=== PATIENT | male | born 1950 | race Caucasian/White ===

== ENCOUNTER 2017-06-18 14:29 | Inpatient (IN) | payer OTHER ==
--- NOTE | 2017-06-18 15:31 | RAD REPORT ---
EXAM DESCRIPTION: CT - Stone Protocol - 06/18/2017 3:18 pm CLINICAL HISTORY: Flank pain. COMPARISON: 11/07/2016 TECHNIQUE: Axial images were obtained without oral or IV contrast. Lack of contrast limits solid org an and vascular assessment. The [id number] spans the entirety of the system partially obscuring uppermost abdomen and lung bases. Coronal reformatted images were obtained and reviewed. All CT scans are performed using dose optimization technique as appropriate and may include automated exposure control or mA/KV adjustment according to patient size. FINDINGS: The lower lung camacho are clear. Imaged portions of the liver and spleen show no suspicious findings on non-contrast imaging. The panc reas and adrenal glands are normal. No pathologic lymphadenopathy in the abdomen or pelvis. 5 mm stone is present in the inferior calyx left kidney. Punctate stone is present mid-pole left kidn ey. No right-sided calculus is seen. No bowel obstruction, free air, free fluid or abscess. Normal appendix noted.Sigmoid diverticulosis c bairon is present without diverticulitis. No significant bony abnormality. Moderate aortic atherosclerosis. IMPRESSION: Left renal stones are present without hydronephrosis. Moderate aortic atherosclerosis. Sigmoid diverticulosis.
[2017-06-18 15:40] LABS: Absolute Lymphocytes (CBC) 1.4 K/uL (0.7-4.9); Absolute Monocytes 0.7 K/uL (0.1-1.3); Absolute Neutrophil 3.7 K/uL (1.8-8.0); Basophils % 0.4 % (0-1.3); Eosinophils % 2.2 % (0-4.4); Lymphocytes % 23.5 % (15.3-44.8); MCH 29.7 pg (27.0-35.0); MCV 88.6 fL (80-100); MPV 7.9 fL (7.6-11.3); Monocytes % 11.1 % (3.3-12.3)
[2017-06-18 15:51] LABS: Potassium 3.8 mEq/L (3.6-5.0)
[2017-06-18 15:57] LABS: Albumin 3.6 g/dL (3.2-5.5); Bilirubin Direct 0.1 mg/dL (0-0.2); Bilirubin Total 0.7 mg/dL (0.3-1.2); Protein, Total 7.6 g/dL (6.0-8.3)
--- NOTE | 2017-06-18 16:30 | ER ---
Nurse's Notes [facility] Name: Tyler Thornton Age: 66 yrs Sex: Male : 1950 Arrival Date: 06/18/2017 Time: 14:34 Bed 30 Private MD: Breezy Prieto Diagnosis: Acute kidney failure Presentation: 06/18 14:40 Presenting complaint: Patient states: went to my PCP last Friday, had some blood test hj and had another round of blood test today, received a call an hour ago from my PCP, telling me that my kidney is not functioning well; i am extremely week and i have diarrhea today; reports nausea; denies fever and chills;. Transition of care: patient was not received from another setting of care. Onset of symptoms was June 18, 2017. Care prior to arrival: None. 14:40 Method Of Arrival: Ambulatory hj 14:40 Acuity: REMINGTON 3 hj Triage Assessment: 14:45 General: Appears in no apparent distress. uncomfortable, Behavior is calm, cooperative, hj appropriate for age. Pain: Denies pain. GI: Reports diarrhea, nausea. Historical: - Allergies: 14:45 No Known Allergies; hj - Home Meds: 14:45 amlodipine 10 mg tab 1 tab once daily [Active]; metformin 500 mg Oral tab 1 tab 2 times hj per day [Active]; atorvastatin 10 mg oral tab 1 tab once daily [Active]; methocarbamol 750 mg Oral tab 1 tab twice a day [Active]; testosterone buccal buccal every 4 weeks [Active]; Levitra 20 mg oral tab 1 tab once daily [Active]; valacyclovir 500 mg Oral tab 1 tab once daily [Active]; lorazepam 1 mg Oral tab 1 tab 2 times per day [Active]; nefazodone 200 mg oral tab 1 tab 2 times per day [Active]; - PMHx: 14:45 Diabetes - NIDDM; Hypertension; Kidney stones; hj - PSHx: 14:45 Lithotripsy; hj - Immunization history:: Pneumococcal vaccine is up to date, Flu vaccine is up to date. - Social history:: Smoking status: Patient uses tobacco products, States is currently trying to quit, has not smoked in 10 days. Screenin:15 Abuse screen: Denies threats or abuse. Nutritional screening: No deficits noted. kb1 Tuberculosis screening: No symptoms or risk factors identified. Fall Risk None identified. Assessment: 14:45 GI: Bowel sounds present X 4 quads. hj 15:15 General: Appears in no apparent distress. Behavior is calm, cooperative. Pain: Denies kb1 pain. Neuro: Level of Consciousness is awake, alert, obeys commands, Oriented to person, place, time, situation. Cardiovascular: Patient's skin is warm and dry. Respiratory: Airway is patent. GI: Bowel sounds present X 4 quads. Abd is soft and non tender. : No signs and/or symptoms were reported regarding the genitourinary system. 15:29 Reassessment: Attempted to give urine sample, unable at this time. kb1 17:22 Reassessment: Patient appears in no apparent distress at this time. Patient and/or kb1 family updated on plan of care and expected duration. Pain level reassessed. Patient is alert, oriented x 3, equal unlabored respirations, skin warm/dry/pink. 18:26 Reassessment: Patient appears in no apparent distress at this time. Patient and/or kb1 family updated on plan of care and expected duration. Pain level reassessed. Patient is alert, oriented x 3, equal unlabored respirations, skin warm/dry/pink. 19:03 Reassessment: provided crackers, peanut butter, and water. kb1 20:28 Reassessment: Patient appears in no apparent distress at this time. Patient and/or kb1 family updated on plan of care and expected duration. Pain level reassessed. Patient is alert, oriented x 3, equal unlabored respirations, skin warm/dry/pink. notified will be going to the unit to room 206. Vital Signs: 14:45 BP 103 / 50; Pulse 70; Resp 18; Temp 98.2(O); Pulse Ox 96% on R/A; Weight 90.72 kg; hj Height 5 ft. 9 in. (175.26 cm); Pain 0/10; 15:29 BP 111 / 57; Pulse 58; Resp 18; Pulse Ox 98% ; kb1 17:23 BP 107 / 62; Pulse 55; Resp 18; Pulse Ox 100% ; kb1 18:26 BP 140 / 50; Pulse 75; Resp 20; Pulse Ox 100% ; kb1 20:29 BP 139 / 50; Pulse 69; Resp 20; Pulse Ox 98% ; kb1 14:45 Body Mass Index 29.54 (90.72 kg, 175.26 cm) ED Course: 14:34 Patient arrived in ED. mr 14:34 Breezy Prieto MD is Private Physician. mr 14:42 Triage completed. hj 14:45 Arm band placed on left wrist. hj 14:47 Alejandrina Spencer FNP-C is PHCP. kb 14:47 Sebas Valdes MD is Attending Physician. kb 14:52 Vandana Gottlieb, RN is Primary Nurse. tl3 15:15 Patient has correct armband on for positive identification. Bed in low position. Call kb1 light in reach. Side rails up X 1. Pulse ox on. NIBP on. 15:15 No provider procedures requiring assistance completed. kb1 15:16 Primary Nurse role handed off by Vandana Gottlieb, RN kb1 15:16 Chaparrita Reilly, RN is Primary Nurse. kb1 15:49 Inserted saline lock: 20 gauge in right antecubital area, using aseptic technique. kb1 Blood collected. 16:12 Ultrasound completed. Patient tolerated well. Patient moved back from ultrasound. cy 16:29 Russell Graham DO is Hospitalizing Provider. kb 16:52 X-ray completed. Patient tolerated procedure well. Patient moved back from radiology. la2 20:30 Patient admitted, IV remains in place. kb1 06/19 01:14 Urine Dipstick--Ancillary (enter results) Sent. tl3 01:15 US Rp Exam Complete Sent. tl3 01:15 CT Stone Protocol Sent. tl3 01:15 Amylase, Serum Sent. tl3 01:15 Basic Metabolic Panel Sent. tl3 01:15 CBC with Diff Sent. tl3 01:15 Hepatic Function Sent. tl3 01:15 Lipase Sent. tl3 01:15 Urine Microscopic Only Sent. tl3 Administered Medications: 06/18 17:23 Drug: NS 0.9% 1000 ml Route: IV; Rate: 1000 ml; Site: right antecubital; kb1 18:27 Follow up: IV Status: Completed infusion; IV Intake: 1000ml kb1 17:24 Drug: DuoNeb (3:1) (2.5 mg - 0.5 mg) 3 ml Route: Nebulizer; kb1 18:27 Follow up: Response: No adverse reaction kb1 Intake: 18:27 IV: 1000ml; Total: 1000ml. kb1 Outcome: 16:29 Decision to Hospitalize by Provider. kb 20:30 Admitted to Tele accompanied by tech, family with patient, via wheelchair, room 206, kb1 Report called to Kristin FAIR 20:30 Condition: stable 20:30 Instructed on the need for admit. 20:49 Patient left the ED. kb1 Signatures: Alejandrina Spencer, [employer]-Germania Wells mr Jorje Simmons, RN RN Harper Sampson Chheannith cy Brown, Kristina RN RN kb1 Vandana Gottlieb RN RN tl3 Corrections: (The following items were deleted from the chart) 14:48 14:45 Pulse 70bpm; Resp 18bpm; Pulse Ox 96% RA; Temp 98.2F Oral; 90.72 kg; Height 5 ft. hj 9 in.; BMI: 29.5; Pain 0/10; hj
--- NOTE | 2017-06-18 16:30 | EDPHYS ---
Physician Documentation [facility] Name: Tyler Thornton Age: 66 yrs Sex: Male : 1950 Arrival Date: 06/18/2017 Time: 14:34 Bed 30 Private MD: Breezy Prieto ED Physician Sebas Valdes HPI: 06/18 14:58 This 66 yrs old Male presents to ER via Ambulatory with complaints of kb Abdominal Pain. 14:58 The patient presents with abdominal pain in the upper abdomen. Onset: The kb symptoms/episode began/occurred 3 day(s) ago. The symptoms do not radiate. Associated signs and symptoms: Pertinent positives: diarrhea. The symptoms are described as achy, intermittent. Modifying factors: The symptoms are alleviated by nothing, the symptoms are aggravated by nothing. Severity of pain: At its worst the pain was moderate in the emergency department the pain is unchanged. The patient has not experienced similar symptoms in the past. The patient has been recently seen by a physician:. Was seen last week by Dr Prieto for sinus infection/cough. Given antibiotics for that. Had some labs done this week by Ida and got a call today to come to ER for evaluation because his kidneys weren't functioning well. Pt reports he is urinating fine at home. Reports upper abd pain that is relieved with aleve and rest. . Historical: - Allergies: 14:45 No Known Allergies; hj - Home Meds: 14:45 amlodipine 10 mg tab 1 tab once daily [Active]; metformin 500 mg Oral tab 1 tab 2 times hj per day [Active]; atorvastatin 10 mg oral tab 1 tab once daily [Active]; methocarbamol 750 mg Oral tab 1 tab twice a day [Active]; testosterone buccal buccal every 4 weeks [Active]; Levitra 20 mg oral tab 1 tab once daily [Active]; valacyclovir 500 mg Oral tab 1 tab once daily [Active]; lorazepam 1 mg Oral tab 1 tab 2 times per day [Active]; nefazodone 200 mg oral tab 1 tab 2 times per day [Active]; - PMHx: 14:45 Diabetes - NIDDM; Hypertension; Kidney stones; hj - PSHx: 14:45 Lithotripsy; hj - Immunization history:: Pneumococcal vaccine is up to date, Flu vaccine is up to date. - Social history:: Smoking status: Patient uses tobacco products, States is currently trying to quit, has not smoked in 10 days. ROS: 14:57 Constitutional: Negative for fever, chills, and weight loss, Cardiovascular: Negative kb for chest pain, palpitations, and edema, Back: Negative for injury and pain, : Negative for injury, bleeding, discharge, and swelling, MS/Extremity: Negative for injury and deformity, Skin: Negative for injury, rash, and discoloration, Neuro: Negative for headache, weakness, numbness, tingling, and seizure. 14:57 Respiratory: Positive for cough, Negative for dyspnea on exertion, hemoptysis, orthopnea, pleurisy, shortness of breath, sputum production, wheezing. 14:57 Abdomen/GI: Positive for abdominal pain, diarrhea, Negative for nausea and vomiting, constipation, abdominal cramps, abdominal distension, anorexia. Exam: 14:58 Constitutional: This is a well developed, well nourished patient who is awake, alert, kb and in no acute distress. Head/Face: Normocephalic, atraumatic. Chest/axilla: Normal chest wall appearance and motion. Nontender with no deformity. No lesions are appreciated. Cardiovascular: Regular rate and rhythm with a normal S1 and S2. No gallops, murmurs, or rubs. Normal PMI, no JVD. No pulse deficits. Respiratory: Lungs have equal breath sounds bilaterally, clear to auscultation and percussion. No rales, rhonchi or wheezes noted. No increased work of breathing, no retractions or nasal flaring. Back: No spinal tenderness. No costovertebral tenderness. Full range of motion. Skin: Warm, dry with normal turgor. Normal color with no rashes, no lesions, and no evidence of cellulitis. MS/ Extremity: Pulses equal, no cyanosis. Neurovascular intact. Full, normal range of motion. Neuro: Awake and alert, GCS 15, oriented to person, place, time, and situation. Cranial nerves II-XII grossly intact. Motor strength 5/5 in all extremities. Sensory grossly intact. Cerebellar exam normal. Normal gait. 14:58 Abdomen/GI: Inspection: abdomen appears normal, Bowel sounds: normal, in all quadrants, Palpation: soft, in all quadrants, nontender, in the right upper quadrant and left upper quadrant, mild abdominal tenderness, in the right lower quadrant and left lower quadrant. Vital Signs: 14:45 BP 103 / 50; Pulse 70; Resp 18; Temp 98.2(O); Pulse Ox 96% on R/A; Weight 90.72 kg; hj Height 5 ft. 9 in. (175.26 cm); Pain 0/10; 15:29 BP 111 / 57; Pulse 58; Resp 18; Pulse Ox 98% ; kb1 17:23 BP 107 / 62; Pulse 55; Resp 18; Pulse Ox 100% ; kb1 18:26 BP 140 / 50; Pulse 75; Resp 20; Pulse Ox 100% ; kb1 20:29 BP 139 / 50; Pulse 69; Resp 20; Pulse Ox 98% ; kb1 14:45 Body Mass Index 29.54 (90.72 kg, 175.26 cm) hj MDM: 14:48 Patient medically screened. kb 14:58 Data reviewed: vital signs, nurses notes. Data interpreted: Pulse oximetry: on room air kb is 96 %. Interpretation: normal. 16:28 Counseling: I had a detailed discussion with the patient and/or guardian regarding: the kb historical points, exam findings, and any diagnostic results supporting the discharge/admit diagnosis, lab results, radiology results, the need for further work-up and treatment in the hospital. Physician consultation: Russell Graham DO was contacted at 16:28, regarding admission, to the medical/surgical unit. patient's condition, in the emergency department to see patient at 16:28. 06/18 14:57 Order name: Amylase, Serum kb 06/18 14:57 Order name: Basic Metabolic Panel kb 06/18 14:57 Order name: CBC with Diff kb 06/18 14:57 Order name: Hepatic Function kb 06/18 14:57 Order name: Lipase kb 06/18 14:57 Order name: Urine Microscopic Only kb 06/18 15:42 Order name: CBC with Automated Diff; Complete Time: 15:45 EDMS 06/18 15:51 Order name: Basic Metabolic Panel; Complete Time: 16:06 EDMS 06/18 15:51 Order name: Lipase; Complete Time: 16:06 EDMS 06/18 16:01 Order name: Liver (Hepatic) Function; Complete Time: 16:06 EDMS 06/18 16:01 Order name: Amylase Level; Complete Time: 16:06 EDMS 06/18 16:52 Order name: Urine Dipstick--Ancillary (enter results) ms 06/18 16:55 Order name: Urine Microscopic Only; Complete Time: 16:59 EDMS 06/18 16:57 Order name: Urine Dipstick-Ancillary; Complete Time: 16:59 EDMS 06/18 14:57 Order name: IV Saline Lock; Complete Time: 15:49 kb 06/18 14:57 Order name: Labs collected and sent; Complete Time: 15:49 kb 06/18 14:57 Order name: Urine Dipstick-Ancillary (obtain specimen); Complete Time: 16:23 kb 06/18 15:05 Order name: CT Stone Protocol kb 06/18 15:32 Order name: CT; Complete Time: 15:33 EDMS 06/18 15:46 Order name: US Rp Exam Complete kb 06/18 16:39 Order name: Chest Pa And Lat (2 Views) XRAY kb 06/18 16:57 Order name: US; Complete Time: 16:59 EDMS 06/18 17:12 Order name: RAD; Complete Time: 17:13 EDMS Administered Medications: 17:23 Drug: NS 0.9% 1000 ml Route: IV; Rate: 1000 ml; Site: right antecubital; kb1 18:27 Follow up: IV Status: Completed infusion; IV Intake: 1000ml kb1 17:24 Drug: DuoNeb (3:1) (2.5 mg - 0.5 mg) 3 ml Route: Nebulizer; kb1 18:27 Follow up: Response: No adverse reaction kb1 Disposition: 06/19 07:16 Co-signature as Attending Physician, Sebas Valdes MD I agree with the assessment and kdr plan of care. Disposition: 06/18/17 16:29 Hospitalization ordered by Russell Graham for Inpatient Admission. Preliminary diagnosis is Acute kidney failure. - Bed requested for Telemetry/MedSurg (Inpatient). - Status is Inpatient Admission. kb1 - Condition is Stable. - Problem is new. - Symptoms are unchanged. UTI on Admission? No Signatures: Dispatcher [employer] [facility] Alejandrina Spencer FNP-C FNP-Ckb Rittger, Kevin, MD MD kdr Joaquin, Henry, RN RN Paulson, Brenna, RN RN df Brown, Chaparrita, RN RN kb1
[2017-06-18] MEDS ORDERED: NA CHLORIDE 0.9% 1,000 ML ONE (16:44)
[2017-06-18 16:55] LABS: Urine Amorphous Sediment 1+ /HPF (NONE SEEN); Urine Bacteria <20 /HPF (NONE SEEN); Urine Culture Reflex Order NOT NEEDED; Urine RBC <5 /HPF (NONE SEEN)
--- NOTE | 2017-06-18 16:56 | RAD REPORT ---
EXAM DESCRIPTION: US - Renal Ultrasound-Complete - 06/18/2017 4:14 pm CLINICAL HISTORY: Acute renal failure, evaluate for obstruction Preliminary findings provided at the time of the study. COMPARISON: CT study June 18 FINDINGS: The right kidney measures 12.6 x 7.2 x 5.9 cm. The left kidney measures 12.7 x 6.1 x 4.8 cm. Renal cortical thickness and echogenicity are normal. No hydronephrosis or suspicious renal mass. Punctate 7 mm echogenic focus lower pole left kidney matches the stone seen on the CT study. IMPRESSION: No hydronephrosis or suspicious renal mass. Small nonobstructing stone lower pole left kidney.
[2017-06-18 16:57] LABS: Urine Blood 2+ (NEG); Urine Glucose NEGATIVE (NEG); Urine Protein 1+ (NEG); Urine Specific Gravity 1.015 (1.005-1.030)
--- NOTE | 2017-06-18 17:03 | P.HP ---
Certification for Inpatient Patient admitted to: Inpatient With expected LOS: >2 Midnights Patient will require the following post-hospital care: None Practitioner: I am a practitioner with admitting privileges, knowledge of patient current condition, hospital course, and medical plan of care. Services: Services provided to patient in accordance with Admission requirements found in Title 42 Section 412.3 of the Code of Federal Regulations Patient History Date of Service: 06/18/17 Primary Care Provider: Dr. Prieto Reason for admission: Abnormal lab, fatigue History of Present Illness: 66-year-old male presented emergency room with fatigue and abnormal lab. The patient reports that he has been having some sinus problems since last week. He went to see his PCP on Friday. He is found to have acute sinusitis. The patient was started on Cipro 500 mg twice daily. He had been taking over the counter cough and cold medication along with believed for pain. The patient has significant past medical history of diabetes, hypertension, hyperlipidemia, chronic pain, depression, low testosterone and history of kidney stones. The patient is taking metformin and losartan/ hydrochlorothiazide. On Friday he also had some lab drawn. Today he received phone call from his PCP alerting him that his lab was abnormal. He was told to go to the emergency room for further evaluation. He was told that his kidney function was not within normal range. The patient had reported increasing fatigue, decreased appetite. He reports no significant fever, chills, chest pain, shortness of breath, nausea or vomiting. He has noted some mild back pain. In the ER the patient was evaluated. Patient was found to be in acute renal failure with the BUN of 57, creatinine 5.4 with a GFR of 11. Previous lab in 2014 showed a normal renal function. White count within normal range. Sodium 134, potassium 3.8. Glucose 108. CT of the abdomen showed nephrolithiasis non obstructing. Otherwise unremarkable. Due to the nature the findings the patient was admitted for further evaluation. I was asked to admit the patient. When I saw the patient ER, he did not appear in any distress. Patient reports no history of renal disease. He has been taking his medication for diabetes, hypertension, hyperlipidemia for quite some time. No recent new medications have been started except Cipro. He reports using ibuprofen from time to time. Allergies No Known Allergies Allergy (Verified 08/18/14 11:19) Home medications list reviewed: Yes Home Medications: Amlodipine Besylate [Norvasc] 10 mg PO DAILY 04/29/14 Atorvastatin Calcium [Lipitor] 10 mg PO BEDTIME 04/29/14 Lorazepam [Ativan] 1 mg PO BID 04/29/14 Metformin ER [Glucophage ER*] 1,000 mg PO BID 04/29/14 Nefazodone HCl 200 mg PO BID 04/29/14 Olmesartan/Hydrochlorothiazide [Benicar Hct 40-12.5 mg Tablet] 1 each PO DAILY 04/29/14 Temazepam [Restoril*] 15 mg PO BEDTIME PRN 04/29/14 Valacyclovir [Valtrex] 500 mg PO DAILY PRN 04/29/14 Vardenafil HCl [Levitra] 20 mg PO DAILYPRN PRN 04/29/14 Aspirin [Aspirin EC] 81 mg PO DAILY 08/18/14 Cholecalciferol (Vitamin D3) [Vitamin D3] 2,000 unit PO DAILY 08/18/14 Lorazepam [Ativan] 1 mg PO BID PRN 08/18/14 Magnesium Oxide [Magnesium] 400 mg PO DAILY 08/18/14 [place]-3 Fatty Acids/Fish Oil [Fish Oil 1,000 mg Softgel] 2 each PO DAILY Testosterone Enanthate 200 mg IM ONCE 08/18/14 - Past Medical/Surgical History Diabetic: Yes -: Diabetes mellitus type 2 -: Hypertension -: Hyperlipidemia -: Chronic back pain -: Nephrolithiasis -: Low testosterone -: Depression -: Tobacco abuse -: Patient reports a history of heart surgery for a murmur Psychosocial/ Personal History: He is . - Family History Brother -: Heart disease, Hypertension Mother -: Lung disease (Small cell lung cancer) - Social History Smoking Status: Heavy Tobacco smoker (>10 cigarettes/day) Counseled patient to stop smoking for: less than 10 minutes Smoking therapy provided: Yes Patient receptive to therapy: Yes Alcohol use: Yes CD- Drugs: No Caffeine use: Yes Place of Residence: Home Review of Systems General: Weakness, Malaise, As per HPI Eyes: Unremarkable ENT: Nose Congestion, As per HPI Respiratory: Wheezing, As per HPI Cardiovascular: Unremarkable Gastrointestinal: Unremarkable Genitourinary: Unremarkable Musculoskeletal: Back Pain, As per HPI Integumentary: Unremarkable Neurological: Weakness, As per HPI Lymphatics: Unremarkable Physical Examination - Physical Exam General: Alert, In no apparent distress, Oriented x3, Cooperative HEENT: Atraumatic, Normocephalic, PERRLA, Mucous membr. moist/pink, EOMI Neck: Supple, No Thyromegaly, Without JVD or thyroid abnormality Respiratory: Expiratory wheezes Cardiovascular: Normal pulses, Regular rate/rhythm Gastrointestinal: Normal bowel sounds, Soft and benign, Non-distended, No ascites, No tenderness, No masses, No rebound, No guarding Musculoskeletal: No contractures, No erythema, No tenderness, No warmth Integumentary: No tenderness/swelling, No erythema, No warmth, No cyanosis Neurological: Normal speech, Normal strength at 5/5 x4 extr, Normal tone, Normal affect Lymphatics: No axilla or inguinal lymphadenopathy - Studies Laboratory Data (last 24 hrs) 06/18/17 15:30: WBC 6.0, Hgb 13.0 L, Hct 39.0 L, Plt Count 415 H 06/18/17 15:30: Sodium 134 L, Potassium 3.8, BUN 57 H, Creatinine 5.40 H*, Glucose 108, Total Bilirubin 0.7, AST 19, ALT 26, Alkaline Phosphatase 62, Amylase 53, Lipase 22 Assessment and Plan - Problems (Diagnosis) (1) Acute renal failure Current Visit: Yes Status: Acute Plan: Patient with acute renal failure. Likely related to medication. Patient recently taking Cipro and nonsteroidal anti-inflammatories along with over-the- counter cough and congestion medication. Patient also has a history of diabetes and hypertension taking metformin and losartan/hydrochlorothiazide. Uncertain if the patient has chronic renal disease. Will need to check renal ultrasound. Will start IV fluids. Will discontinue Cipro, nonsteroidal anti- inflammatories, metformin, losartan and hydrochlorothiazide. Nephrology consulted. Await further recommendations. Will continue to monitor lab closely. Will also check echocardiogram. Lab-hepatitis panel will be obtained. Urinalysis pending. Qualifiers: Acute renal failure type: unspecified Qualified Code(s): N17.9 - Acute kidney failure, unspecified (2) Diabetes mellitus Current Visit: Yes Status: Chronic Plan: Will start sliding scale. Will check A1c. Will discontinue metformin. Qualifiers: Diabetes mellitus type: type 2 Diabetes mellitus intermodal customer service insulin use: without group home use Diabetes mellitus complication status: with kidney complications Diabetes mellitus complication detail: with other kidney complication Qualified Code(s): E11.29 - Type 2 diabetes mellitus with other diabetic kidney complication (3) Hypertension Current Visit: Yes Status: Chronic Plan: Will discontinue losartan/hydrochlorothiazide. Will continue with Norvasc. Will provide hydralazine for severe hypertension. Qualifiers: Hypertension type: essential hypertension Qualified Code(s): I10 - Essential (primary) hypertension (4) Hyperlipidemia Current Visit: Yes Status: Chronic Plan: Will hold his statin medication. Qualifiers: Hyperlipidemia type: unspecified Qualified Code(s): E78.5 - Hyperlipidemia , unspecified (5) Depression Current Visit: Yes Status: Chronic Plan: Will need to verify home medication. Qualifiers: Depression Type: unspecified Qualified Code(s): F32.9 - Major depressive disorder, single episode, unspecified (6) Chronic back pain Current Visit: Yes Status: Chronic Plan: Will discontinue nonsteroidal anti-inflammatories. Will provide tramadol as needed for pain. Will hold muscle relaxer. Qualifiers: Back pain location: low back pain Back pain laterality: bilateral Sciatica presence: unspecified whether sciatica present Qualified Code(s): M54.5 - Low back pain; G89.29 - Other chronic pain; G89.29 - Other chronic pain (7) Renal calculi Current Visit: Yes Status: Chronic Plan: No obstruction noted. CT scan reviewed (8) Low testosterone Current Visit: Yes Status: Chronic Plan: Will hold testosterone Discharge Plan: Home Plan to discharge in: Greater than 2 days - Advance Directives Does patient have a Living Will: No Does patient have a Durable POA for Healthcare: No - Code Status/Comfort Care Code Status Assessed: Yes Time Spent Managing Pts Care (In Minutes): 55
--- NOTE | 2017-06-18 17:11 | RAD REPORT ---
EXAM DESCRIPTION: RAD - Chest Pa And Lat (2 Views) - 06/18/2017 4:56 pm CLINICAL HISTORY: Cough and congestion, kidney failure, hypertension COMPARISON: March 2014 TECHNIQUE: PA and lateral views of the chest were obtained. FINDINGS: The lungs are clear of a mass, consolidation or failure finding. Interstitial markings are prominent. Interstitial pattern is not substantially different from comparison. Heart size is norm al and central vasculature is within normal limits. No pleural effusion or pneumothorax seen. Wedge compression of 2 mid thoracic vertebrae noted similar to the prior study. No lytic, blastic or expan sile component. No aortic abnormality. IMPRESSION: Chronic interstitial lung disease similar to comparison. No acute finding noted.
[2017-06-18] MEDS ORDERED: ALBUTEROL 2.5 MG/3 ML NEB SOL ONE (17:30)
[2017-06-18] MEDS ORDERED: IPRATROPIUM BROM 0.5MG/2.5ML ONE (17:30)
[2017-06-18] MEDS ORDERED: HYDRALAZINE HCL 20 MG/ML VIAL IV PRN (19:52)
[2017-06-18] MEDS ORDERED: TRAMADOL HCL 50 MG TAB PO PRN (19:52)
[2017-06-18] MEDS ORDERED: ONDANSETRON 4 MG/2 ML VIAL IV PRN (19:52)
[2017-06-18] MEDS ORDERED: IPRATROPIUM BROM 0.5MG/2.5ML NEB PRN (19:52)
[2017-06-18] MEDS ORDERED: LORAZEPAM 0.5 MG TABLET PO PRN (19:52)
[2017-06-18] MEDS ORDERED: ALBUTEROL 2.5 MG/3 ML NEB SOL NEB PRN (19:52)
[2017-06-18] MEDS ORDERED: ACETAMINOPHEN 500 MG TAB PO PRN (19:52)
[2017-06-18] MEDS: INSULIN -REGULAR HUMAN 50 UNIT/0.5 ML ML SQ SCH (21:00)
[2017-06-18] MEDS: DULERA 100/5 (MOMETASONE/FORMOTEROL) INHALER IH SCH (21:00)
[2017-06-18] MEDS: FLUTICASONE 50MCG NASAL SPRAY NAS SCH (21:00)
[2017-06-18] MEDS: NA CHLORIDE 0.9% 1,000 ML IV SCH (21:31)
[2017-06-18 22:41] LABS: Urine Protein/Creatinine Ratio 0.16 (<0.15)
[2017-06-18 22:45] LABS: Urine Appearance CLEAR; Urine Bilirubin NEGATIVE (NEG); Urine Blood 1+ (NEG); Urine Color YELLOW; Urine Glucose NEGATIVE (NEG); Urine Protein TRACE (NEG); Urine Specific Gravity 1.015 (1.005-1.030); Urine Urobilinogen 0.2 mg/dL (0.2-1.0)
[2017-06-18 22:47] LABS: Urine Microscopic Reflex ORDER UMIC
[2017-06-18 23:58] LABS: Urine Bacteria <20 /HPF (NONE SEEN); Urine Culture Reflex Order REFLEXED; Urine Waxy Casts 0-5 /LPF (NONE SEEN)
[2017-06-19 05:23] LABS: Absolute Lymphocytes (CBC) 1.5 K/uL (0.7-4.9); Absolute Monocytes 0.9 K/uL (0.1-1.3); Absolute Neutrophil 4.7 K/uL (1.8-8.0); Basophils % 0.2 % (0-1.3); Eosinophils % 2.1 % (0-4.4); Hematocrit 35.2 % (39.6-49.0); Lymphocytes % 20.4 % (15.3-44.8); MCH 29.9 pg (27.0-35.0); MPV 7.8 fL (7.6-11.3)
[2017-06-19] MEDS: PANTOPRAZOLE 40MG TABLET PO SCH (05:32)
[2017-06-19] MEDS: NA CHLORIDE 0.9% 1,000 ML IV SCH ×2 (05:33→16:34)
[2017-06-19 06:53] LABS: Magnesium 2.2 mg/dL (1.8-2.5); Phosphorus 3.8 mg/dL (2.5-4.3); Potassium 3.9 mEq/L (3.6-5.0); Thyroid Stimulating Hormone 2.36 uIU/mL (0.34-5.60)
[2017-06-19] MEDS: INSULIN -REGULAR HUMAN 50 UNIT/0.5 ML ML SQ SCH ×4 (07:30→21:00)
[2017-06-19] MEDS: FLUTICASONE 50MCG NASAL SPRAY NAS SCH ×2 (09:00→21:02)
[2017-06-19] MEDS: DULERA 100/5 (MOMETASONE/FORMOTEROL) INHALER IH SCH ×2 (09:00→21:01)
[2017-06-19] MEDS: ENOXAPARIN 30 MG/0.3 ML SQ SCH (11:03)
[2017-06-19] MEDS: AMLODIPINE 10 MG TAB PO SCH (11:06)
[2017-06-19 11:22] LABS: A1c Component 0.54 mg/dL; Hemoglobin A1c 6.4 % (4-6.0)
--- NOTE | 2017-06-19 12:59 | ECHO ---
HEIGHT: 5 ft 9 in WEIGHT: 200 lb 0 oz DATE OF STUDY: 06-19-[address]: Russell Graham DO 2-DIMENSIONAL: YES M.MODE: YES DOPPLER: YES COLOR FLOW: YES TDS: NO PORTABLE: NO DEFINITY: NO BUBBLE STUDY: NO DIAGNOSIS: ACUTE RENAL FAILURE, HYPERTENSION, DIABETES, HYPERLIPIDEMIA CARDIAC HISTORY: CATHERIZATION: NO SURGERY: YES PROSTHETIC VALVE: NO PACEMAKER: NO MEASUREMENTS (cm) DIASTOLIC (NORMALS) SYSTOLIC (NORMALS) IVSd 1.1 (0.6-1.2) LA Diam 4.3 (1.9-4.0) LVEF 60-69% LVIDd 5.3 (3.5-5.7) LVIDs 3.7 (2.0-3.5) %FS % LVPWd 1.0 (0.6-1.2) Ao Diam 3.5 (2.0-3.7) 2 DIMENSIONAL ASSESSMENT: RIGHT ATRIUM: NORMAL LEFT ATRIUM: DILATED RIGHT VENTRICLE: NORMAL LEFT VENTRICLE: NORMAL TRICUSPID VALVE: NORMAL MITRAL VALVE: NORMAL PULMONIC VALVE: NORMAL AORTIC VALVE: NORMAL PERICARDIAL EFFUSION: NONE AORTIC ROOT: NORMAL LEFT VENTRICULAR WALL MOTION: NORMAL DOPPLER/COLOR FLOW: MILD MITRAL AND TRICUSPID REGURGITATION. NORMAL RIGHT VENTRICULAR SYSTOLIC PRESSURE. COMMENTS: NORMAL LEFT VENTRICULAE EJECTION FRACTION. DILATED LEFT ATRIUM. MILD MITRAL AND TRICUSPID REGURGITATION. TECHNOLOGIST: Nasir [facility]
--- NOTE | 2017-06-19 13:10 | P.PN ---
Subjective Date of Service: 06/19/17 Primary Care Provider: Dr. Prieto Chief Complaint: Abnormal lab, fatigue Subjective: Doing well Physical Examination - Vital Signs Temperature: 97.1 F Blood Pressure: 164/78 Pulse: 64 Respirations: 17 Pulse Ox (%): 98 - Physical Exam General: Alert, In no apparent distress, Oriented x3, Cooperative HEENT: Atraumatic, Mucous membr. moist/pink Neck: Supple Respiratory: Clear to auscultation bilaterally, Normal air movement Cardiovascular: Normal pulses, Regular rate/rhythm Gastrointestinal: Normal bowel sounds, Soft and benign, Non-distended Musculoskeletal: No erythema, No tenderness, No warmth Integumentary: No tenderness/swelling, No erythema, No warmth, No cyanosis Neurological: Normal speech, Normal strength at 5/5 x4 extr, Normal tone, Normal affect Lymphatics: No axilla or inguinal lymphadenopathy - Studies Laboratory Data (last 24 hrs) 06/18/17 15:30: WBC 6.0, Hgb 13.0 L, Hct 39.0 L, Plt Count 415 H 06/18/17 15:30: Sodium 134 L, Potassium 3.8, BUN 57 H, Creatinine 5.40 H*, Glucose 108, Total Bilirubin 0.7, AST 19, ALT 26, Alkaline Phosphatase 62, Amylase 53, Lipase 22 Medications List Reviewed: Yes Assessment & Plan - Problems (Diagnosis) (1) Acute renal failure Onset Date: 06/19/17 Current Visit: Yes Status: Acute Plan: Still no significant change. Will continue with current plan of care. Medications have been discontinued and adjusted. Discussed with nephrology. If no improvement by tomorrow patient will require renal biopsy. Qualifiers: Acute renal failure type: unspecified Qualified Code(s): N17.9 - Acute kidney failure, unspecified (2) Diabetes mellitus Onset Date: 06/19/17 Current Visit: Yes Status: Chronic Plan: Continue with sliding scale. A1c 6.4. Metformin has been discontinued. Qualifiers: Diabetes mellitus type: type 2 Diabetes mellitus residential insulin use: without computer terminal operator use Diabetes mellitus complication status: with kidney complications Diabetes mellitus complication detail: with other kidney complication Qualified Code(s): E11.29 - Type 2 diabetes mellitus with other diabetic kidney complication (3) Hypertension Onset Date: 06/19/17 Current Visit: Yes Status: Chronic Plan: Losartan/hydrochlorothiazide has been discontinued. Will continue with Norvasc. Will provide medication if blood pressure elevated. Qualifiers: Hypertension type: essential hypertension Qualified Code(s): I10 - Essential (primary) hypertension (4) Hyperlipidemia Onset Date: 06/19/17 Current Visit: Yes Status: Chronic Plan: Will continue to hold his statin medication. Qualifiers: Hyperlipidemia type: unspecified Qualified Code(s): E78.5 - Hyperlipidemia , unspecified (5) Depression Onset Date: 06/19/17 Current Visit: Yes Status: Chronic Plan: Will continue with his medication Qualifiers: Depression Type: unspecified Qualified Code(s): F32.9 - Major depressive disorder, single episode, unspecified (6) Chronic back pain Onset Date: 06/19/17 Current Visit: Yes Status: Chronic Plan: Will provide medication as needed. Patient had been taking nonsteroidal anti- inflammatories. Qualifiers: Back pain location: low back pain Back pain laterality: bilateral Sciatica presence: unspecified whether sciatica present Qualified Code(s): M54.5 - Low back pain; G89.29 - Other chronic pain; G89.29 - Other chronic pain (7) Renal calculi Onset Date: 06/19/17 Current Visit: Yes Status: Chronic Plan: No obstruction noted. CT scan reviewed (8) Low testosterone Onset Date: 06/19/17 Current Visit: Yes Status: Chronic Plan: Will hold testosterone Discharge Plan: Home Plan to discharge in: Greater than 2 days Time Spent Managing Pts Care (In Minutes): 55
--- NOTE | 2017-06-19 14:55 | CON ---
Date of Consultation: 06/19/2017 Additional Consulting Physician: Russell Graham DO Reason For Consultation: Elevated BUN and creatinine. History Of Present Illness: This is a pleasant 66-year-old gentleman with significant past medical h istory of diabetes diagnosis in 2010, no neuropathy, no retinopathy, hypertension, hyperlipidemia, os teoarthritis. According to the patient, the patient was in his regular state of health. He started having some joint pain, found to have osteoarthritis. For that reason, the patient started taking ib uprofen according to him. For the last few days, he is taking an average around 4 tablets a day. Th e patient started feeling after that week, losing energy. The patient also has some upper respirator y tract infection with sinusitis and started on ciprofloxacin after he felt fatigued. He reported to his primary care and he done some labs, found to have an elevated BUN and creatinine. For that reas on, he sent over. The patient admits that he has been taking metformin, he is taking the ibuprofen a s I mentioned, and the patient apparently on losartan and hydrochlorothiazide. The patient denied an y IV contrast. No other hospitalization. No recent changes in his medication. No symptoms. No rashes. No other joint abnormality. On presentation from the office of his primary care, the patient's creatinine was 5.4 and GFR of 11. The patient had labs with Dr. Prieto back in September 2016. At that time, his creatinine 1.05 with GFR of 73. No hyperkalemia or acidosis. Potassium 4.1, bicarb of 30, hemoglobin A1c of 6, normal LDL. At that time, his TSH is 1.7. His WBC 9.9 and H and H 13.7/40.8. No thrombocytopenia. Past Medical History: Includes; 1.Diabetes. No neuropathy or nephropathy or retinopathy. 2.Hypertension. 3.Osteoarthritis. 4.Nephrolithiasis. 5.Depression. Home Medications: Include; 1.Amlodipine. 2.Atorvastatin. 3.Lorazepam. 4.Metformin. 5. . 6.Olmesartan-hydrochlorothiazide. 7.Valacyclovir. 8.Temazepam. 9.Levitra. 10.Aspirin. 11.Cholecalciferol. 12.Magnesium. 13.Testosterone. Past Surgical History: Negative. Social History: Active smoker. Active alcohol. Denies drug abuse. Review of Systems: Head and Neck: No red eye. No ear pain. GI: No nausea. No vomiting. : No polyuria. No dysuria. No hematuria. No foamy urine. Has some hesitancy with urination. CHICLE GRINDER FEEDER: Not applicable. Respiratory: No shortness of breath. Cardiovascular: No leg swelling. Endocrine: No polydipsia. Neuro: No weakness. Musculoskeletal: No joint pain. Skin: No rashes. Physical Examination: General: When I saw the patient, the patient lying in bed, comfortable, not on any distress. Vital Signs: Blood pressure of 164/78, pulse of 64, afebrile. Reviewing the record, on admission bl ood pressure was down to 103/50. No other hypotension episode. The patient was started on IV fluid. Pulse of 63, afebrile. Chest: Clear to auscultation. Heart: S1, S2. Regular. Abdomen: Soft, nontender. Extremities: No edema. Neurological: Alert and oriented x3. Nonfocal. No tremor. Skin: No rashes. Vascular: No carotid bruit. No renal bruit. The patient is obese. Laboratory Data: As I mentioned, the patient back in September 2016 at that time, creatinine is 1.05 with GFR of 73, normal potassium. His H and H were 13.7/40.8. Current lab data; WBC 7.2, H and H 12/35.2, platelets of 370. Eosinophil percentage is 2.1. Absolute count of the eosinophilia is 200. Sodium 139, potassium 3.9, bicarb 27, BUN 59, creatinine 4.8 tren ding down, GFR down to 12. Hemoglobin A1c 6.4. Calcium 9.1, phosphorus 3.8, magnesium 2.2. TSH 2.3 . PTH is still pending. Urinalysis; blood +1, RBC 5-10, WBC 5-10, protein creatinine 0.16. RAMA was negative. Hepatitis was still pending. Renal ultrasound has been done showing 12.6 x 12.7. No hyd ronephrosis. Small nonobstructing stone on the lower pole of the left kidney. CT abdomen has been d one showing nonobstructing left renal stone without hydronephrosis. Chest x-ray, chronic interstitia l. No congestion. The patient had urine output, voiding. Assessment And Plan: 1.Acute kidney injury, mostly secondary to prerenal, superimposed with nonsteroidal use, ARB and hyd rochlorothiazide and nonsteroidal with poor intake. I doubt to be as AIN given there is no periphera l eosinophilia, no rashes, but given the acuity of the disease and the need to be ruled out, I am goi ng to go ahead and send for eosinophil in the urine. Given the mild hematuria on the testing even th ough that I doubt it to be autoimmune given no much activity on the UA, I am going to send for full s erology. I agree with holding the ARB and hydrochlorothiazide and nonsteroidal and metformin, start on hydration and we will follow up the number. If kidney function did not improve by tomorrow, the p atient may need kidney biopsy. I do not see any need for renal replacement therapy for the time bein g as the patient does not manifest any hyperkalemia or acidosis or any uremic symptoms. 2.Hypertension, uncontrolled. I am going to start the patient on low dose of Coreg. Continue calci um channel [place]. I agree with holding an ARB and hydrochlorothiazide for the time being. 3.Diabetes as by primary. Keep holding metformin. 4.Osteoarthritis. Keep avoiding nonsteroidal. We will follow up. 5.Depression. Okay to resume antianxiety and depression medications. Thank you, Dr. Graham for allowing us to participate in the care of your patient. Case discussed with the patient and family by bedside. They verbalized understanding. MARGIE Voice ID: [id number] Report ID: [id number]
[2017-06-19] MEDS: LORAZEPAM 1 MG TABLET PO SCH (20:57)
[2017-06-19] MEDS: DOCOSAHEXANOIC AC/EPA 1000 MG PO SCH (20:58)
[2017-06-19] MEDS: VITAMIN D 1000 UNIT TAB PO SCH (20:59)
[2017-06-19] MEDS: ATORVASTATIN 10 MG TAB PO SCH (21:00)
[2017-06-19] MEDS: NEFAZODONE HCL 200 MG PO SCH (21:00)
[2017-06-20] MEDS: NA CHLORIDE 0.9% 1,000 ML IV SCH (02:44)
[2017-06-20 05:28] LABS: Absolute Lymphocytes (CBC) 1.4 K/uL (0.7-4.9); Absolute Monocytes 0.8 K/uL (0.1-1.3); Absolute Neutrophil 4.4 K/uL (1.8-8.0); Basophils % 0.3 % (0-1.3); Eosinophils % 3.9 % (0-4.4); Hematocrit 36.7 % (39.6-49.0); Lymphocytes % 20.6 % (15.3-44.8); MCV 89.3 fL (80-100); MPV 7.5 fL (7.6-11.3); Monocytes % 11.3 % (3.3-12.3); RBC Red Blood Cell Count 4.11 M/uL (4.33-5.43)
[2017-06-20] MEDS: PANTOPRAZOLE 40MG TABLET PO SCH (05:31)
[2017-06-20 05:57] LABS: Albumin 3.3 g/dL (3.2-5.5); Magnesium 2.2 mg/dL (1.8-2.5); Phosphorus 3.5 mg/dL (2.5-4.3); Potassium 3.6 mEq/L (3.6-5.0)
[2017-06-20] MEDS ORDERED: KCL 20 MEQ/100 mL IVPB 20 MEQ/100 ML BAG IV SCH (07:00)
[2017-06-20] MEDS ORDERED: POTASSIUM CL SA 10 MEQ TAB PO ONE (07:00)
[2017-06-20] MEDS: INSULIN -REGULAR HUMAN 50 UNIT/0.5 ML ML SQ SCH ×4 (07:30→20:34)
--- NOTE | 2017-06-20 08:56 | P.PN ---
Subjective Date of Service: 06/20/17 Primary Care Provider: Dr. Prieto Chief Complaint: Abnormal lab, fatigue Subjective: Improving Physical Examination - Vital Signs Temperature: 97.3 F Blood Pressure: 180/74 Pulse: 51 Respirations: 18 Pulse Ox (%): 98 - Physical Exam General: Alert, In no apparent distress, Oriented x3, Cooperative HEENT: Atraumatic, Mucous membr. moist/pink Neck: Supple Respiratory: Clear to auscultation bilaterally, Normal air movement Cardiovascular: Normal pulses, Regular rate/rhythm Gastrointestinal: Normal bowel sounds, Soft and benign, Non-distended Musculoskeletal: No erythema, No tenderness, No warmth Integumentary: No tenderness/swelling, No erythema, No warmth, No cyanosis Neurological: Normal speech, Normal strength at 5/5 x4 extr, Normal tone, Normal affect - Studies Medications List Reviewed: Yes Assessment & Plan - Problems (Diagnosis) (1) Acute renal failure Onset Date: 06/19/17 Current Visit: Yes Status: Acute Plan: Function improved. Will continue with current plan of care. Will discuss with nephrology. Likely no need for renal biopsy. Qualifiers: Acute renal failure type: unspecified Qualified Code(s): N17.9 - Acute kidney failure, unspecified (2) Diabetes mellitus Onset Date: 06/19/17 Current Visit: Yes Status: Chronic Plan: Continue with sliding scale. A1c 6.4. Metformin has been discontinued. Qualifiers: Diabetes mellitus type: type 2 Diabetes mellitus terminal gauger insulin use: without half-way use Diabetes mellitus complication status: with kidney complications Diabetes mellitus complication detail: with other kidney complication Qualified Code(s): E11.29 - Type 2 diabetes mellitus with other diabetic kidney complication (3) Hypertension Onset Date: 06/19/17 Current Visit: Yes Status: Chronic Plan: Losartan/hydrochlorothiazide has been discontinued. Will continue with Norvasc. Will provide medication if blood pressure elevated. Qualifiers: Hypertension type: essential hypertension Qualified Code(s): I10 - Essential (primary) hypertension (4) Hyperlipidemia Onset Date: 06/19/17 Current Visit: Yes Status: Chronic Plan: Will continue to hold his statin medication. Qualifiers: Hyperlipidemia type: unspecified Qualified Code(s): E78.5 - Hyperlipidemia , unspecified (5) Depression Onset Date: 06/19/17 Current Visit: Yes Status: Chronic Plan: Will continue with his medication Qualifiers: Depression Type: unspecified Qualified Code(s): F32.9 - Major depressive disorder, single episode, unspecified (6) Chronic back pain Onset Date: 06/19/17 Current Visit: Yes Status: Chronic Plan: Will provide medication as needed. Patient had been taking nonsteroidal anti- inflammatories. Qualifiers: Back pain location: low back pain Back pain laterality: bilateral Sciatica presence: unspecified whether sciatica present Qualified Code(s): M54.5 - Low back pain; G89.29 - Other chronic pain; G89.29 - Other chronic pain (7) Renal calculi Onset Date: 06/19/17 Current Visit: Yes Status: Chronic Plan: No obstruction noted. CT scan reviewed (8) Low testosterone Onset Date: 06/19/17 Current Visit: Yes Status: Chronic Plan: Will hold testosterone Discharge Plan: Home Plan to discharge in: Greater than 2 days Time Spent Managing Pts Care (In Minutes): 55
[2017-06-20] MEDS: VITAMIN D 1000 UNIT TAB PO SCH ×2 (09:00→21:00)
[2017-06-20] MEDS: LACTOBACILLUS/ACIDOPHILUS TAB PO SCH (09:00)
[2017-06-20] MEDS: NEFAZODONE HCL 200 MG PO SCH ×2 (09:00→21:00)
[2017-06-20] MEDS: DOCOSAHEXANOIC AC/EPA 1000 MG PO SCH ×2 (09:00→21:00)
[2017-06-20] MEDS: AMLODIPINE 10 MG TAB PO SCH (09:00)
[2017-06-20] MEDS: MULTIVIT W/ MINERAL TAB PO SCH (09:00)
[2017-06-20] MEDS ORDERED: HYDRALAZINE HCL 25 MG TABLET PO SCH (09:00)
[2017-06-20] MEDS: LORAZEPAM 1 MG TABLET PO SCH ×2 (09:00→21:00)
[2017-06-20] MEDS: HYDRALAZINE HCL 25 MG TABLET PO SCH ×2 (10:16→21:11)
[2017-06-20] MEDS: DULERA 100/5 (MOMETASONE/FORMOTEROL) INHALER IH SCH ×2 (10:18→21:12)
[2017-06-20] MEDS: ENOXAPARIN 30 MG/0.3 ML SQ SCH (10:18)
[2017-06-20] MEDS: FLUTICASONE 50MCG NASAL SPRAY NAS SCH ×2 (10:19→21:00)
[2017-06-20] MEDS: NACHLORIDE 0.45% 1,000 ML IV SCH ×2 (10:34→21:11)
[2017-06-20 20:57] VITALS: O2SAT 96
[2017-06-20] MEDS: ATORVASTATIN 10 MG TAB PO SCH (21:11)
[2017-06-20 22:44] VITALS: BMI 29.0
--- NOTE | 2017-06-21 00:07 | PN ---
Date of Progress Note: 06/20/2017 Subjective: The patient was admitted with acute kidney injury secondary to nonsteroidal use superimp osed with hydrochlorothiazide and ARB. The patient is nonoliguric. Objective: General: When I saw the patient, the patient was lying in bed. Vital Signs: Blood pressure of 152/67, pulse of 62, afebrile. Chest: Clear to auscultation. Heart: S1, S2. Regular. Abdomen: Soft, nontender. Extremities: No edema. Laboratory Data: WBC 6.2, H and H of 12.3/36.7, platelets of 419. Sodium 143, potassium 3.6, bicarb 25, BUN 42, creatinine 3.1, GFR of 20, calcium 8.9, phosphorus 3.5. Assessment And Plan: 1.Acute kidney injury secondary to prerenal, superimposed with nonsteroidal use, hydrochlorothiazide , and ARB, on recovery phase, nonoliguric. No need for renal replacement therapy. Continue hydratio n. 2.Hypertension, controlled, optimal. Continue with calcium channel [place]. We will follow up. DEBI/CHRISTINE Voice ID: [id number] Report ID: [id number]
[2017-06-21] MEDS: NACHLORIDE 0.45% 1,000 ML IV SCH ×2 (05:00→07:07)
[2017-06-21 05:28] LABS: Absolute Lymphocytes (CBC) 1.7 K/uL (0.7-4.9); Absolute Monocytes 0.7 K/uL (0.1-1.3); Absolute Neutrophil 5.1 K/uL (1.8-8.0); Basophils % 0.4 % (0-1.3); Eosinophils % 3.6 % (0-4.4); Hematocrit 35.3 % (39.6-49.0); Lymphocytes % 21.1 % (15.3-44.8); MCH 30.2 pg (27.0-35.0); MCV 89.1 fL (80-100); MPV 7.6 fL (7.6-11.3); Monocytes % 9.5 % (3.3-12.3); RBC Red Blood Cell Count 3.96 M/uL (4.33-5.43)
[2017-06-21 05:49] LABS: Albumin 3.1 g/dL (3.2-5.5); Magnesium 1.9 mg/dL (1.8-2.5); Phosphorus 3.6 mg/dL (2.5-4.3); Potassium 3.7 mEq/L (3.6-5.0)
[2017-06-21] MEDS ORDERED: KCL 20 MEQ/100 mL IVPB 20 MEQ/100 ML BAG IV SCH (07:00)
[2017-06-21] MEDS: PANTOPRAZOLE 40MG TABLET PO SCH (07:08)
[2017-06-21] MEDS: INSULIN -REGULAR HUMAN 50 UNIT/0.5 ML ML SQ SCH ×2 (07:30→11:30)
--- NOTE | 2017-06-21 08:10 | P.PN ---
Subjective Date of Service: 06/21/17 Primary Care Provider: Dr. Prieto Chief Complaint: Abnormal lab, fatigue Subjective: Doing well Physical Examination - Vital Signs Temperature: 97.4 F Blood Pressure: 166/76 Pulse: 53 Respirations: 18 Pulse Ox (%): 96 - Physical Exam General: Alert, In no apparent distress, Oriented x3, Cooperative HEENT: Atraumatic, Mucous membr. moist/pink Neck: Supple, No Thyromegaly Respiratory: Clear to auscultation bilaterally, Normal air movement Cardiovascular: Normal pulses, Regular rate/rhythm Gastrointestinal: Normal bowel sounds, Soft and benign, Non-distended, No tenderness, No masses, No rebound, No guarding Musculoskeletal: No contractures, No erythema, No tenderness, No warmth Integumentary: No tenderness/swelling, No erythema, No warmth, No cyanosis Neurological: Normal speech, Normal strength at 5/5 x4 extr, Normal tone, Normal affect - Studies Medications List Reviewed: Yes Assessment & Plan - Problems (Diagnosis) (1) Acute renal failure Onset Date: 06/19/17 Current Visit: Yes Status: Acute Plan: Renal function slowly improving. Still not to baseline. Acute renal failure likely related to medication. Will continue with IV fluids. Will discuss further with nephrology. Likely no need for renal biopsy at this time. Qualifiers: Acute renal failure type: unspecified Qualified Code(s): N17.9 - Acute kidney failure, unspecified (2) Diabetes mellitus Onset Date: 06/19/17 Current Visit: Yes Status: Chronic Plan: Overall stable. Continue with sliding scale. A1c 6.4. Metformin has been discontinued. Qualifiers: Diabetes mellitus type: type 2 Diabetes mellitus senior care insulin use: without senior care use Diabetes mellitus complication status: with kidney complications Diabetes mellitus complication detail: with other kidney complication Qualified Code(s): E11.29 - Type 2 diabetes mellitus with other diabetic kidney complication (3) Hypertension Onset Date: 06/19/17 Current Visit: Yes Status: Chronic Plan: Losartan/hydrochlorothiazide has been discontinued. Will continue with Norvasc. Will increase hydralazine for better blood pressure control. Qualifiers: Hypertension type: essential hypertension Qualified Code(s): I10 - Essential (primary) hypertension (4) Hyperlipidemia Onset Date: 06/19/17 Current Visit: Yes Status: Chronic Plan: Will continue to hold his statin medication. Qualifiers: Hyperlipidemia type: unspecified Qualified Code(s): E78.5 - Hyperlipidemia , unspecified (5) Depression Onset Date: 06/19/17 Current Visit: Yes Status: Chronic Plan: Will continue with his medication Qualifiers: Depression Type: unspecified Qualified Code(s): F32.9 - Major depressive disorder, single episode, unspecified (6) Chronic back pain Onset Date: 06/19/17 Current Visit: Yes Status: Chronic Plan: Will provide medication as needed. Recommend no further use of nonsteroidal anti-inflammatories Qualifiers: Back pain location: low back pain Back pain laterality: bilateral Sciatica presence: unspecified whether sciatica present Qualified Code(s): M54.5 - Low back pain; G89.29 - Other chronic pain; G89.29 - Other chronic pain (7) Renal calculi Onset Date: 06/19/17 Current Visit: Yes Status: Chronic Plan: No obstruction noted. CT scan reviewed (8) Low testosterone Onset Date: 06/19/17 Current Visit: Yes Status: Chronic Plan: Will hold testosterone (9) Anemia Current Visit: Yes Status: Acute Plan: Nonspecific in nature. Overall stable. Will monitor closely. Qualifiers: Anemia type: unspecified type Qualified Code(s): D64.9 - Anemia, unspecified Discharge Plan: Home Plan to discharge in: 24 Hours (to 48 hours) Time Spent Managing Pts Care (In Minutes): 55
[2017-06-21] MEDS: FLUTICASONE 50MCG NASAL SPRAY NAS SCH (09:00)
[2017-06-21] MEDS: MULTIVIT W/ MINERAL TAB PO SCH (09:00)
[2017-06-21] MEDS: VITAMIN D 1000 UNIT TAB PO SCH (09:00)
[2017-06-21] MEDS: DOCOSAHEXANOIC AC/EPA 1000 MG PO SCH (09:00)
[2017-06-21] MEDS: LACTOBACILLUS/ACIDOPHILUS TAB PO SCH (09:00)
[2017-06-21] MEDS: LORAZEPAM 1 MG TABLET PO SCH (09:00)
[2017-06-21] MEDS: AMLODIPINE 10 MG TAB PO SCH (09:00)
[2017-06-21] MEDS: NEFAZODONE HCL 200 MG PO SCH (09:00)
[2017-06-21] MEDS: ENOXAPARIN 30 MG/0.3 ML SQ SCH (09:59)
[2017-06-21] MEDS: DULERA 100/5 (MOMETASONE/FORMOTEROL) INHALER IH SCH (10:00)
[2017-06-21] MEDS ORDERED: HYDRALAZINE HCL 25 MG TABLET PO SCH ×2 (10:00→21:00)
[2017-06-21 14:33] VITALS: BP 164/72; TEMP 98.5
--- NOTE | 2017-06-21 14:56 | P.DS ---
Admission Date: 06/18/17 Discharge Date: 06/21/17 Primary Care Provider: Dr. Prieto Disposition: ROUTINE DISCHARGE Discharge Condition: GOOD Reason for Admission: Abnormal lab, fatigue Consultations: Nephrology-Dr. Hansen Procedures: Renal ultrasound shows no medical renal disease. Small nonobstructing left renal stone noted. Echocardiogram shows ejection fraction 60%. - Problems (1) Acute renal failure Onset Date: 06/19/17 Current Visit: Yes Status: Acute Qualifiers: Acute renal failure type: unspecified Qualified Code(s): N17.9 - Acute kidney failure, unspecified (2) Diabetes mellitus Onset Date: 06/19/17 Current Visit: Yes Status: Chronic Qualifiers: Diabetes mellitus type: type 2 Diabetes mellitus lobsterman insulin use: without lobsterman use Diabetes mellitus complication status: with kidney complications Diabetes mellitus complication detail: with other kidney complication Qualified Code(s): E11.29 - Type 2 diabetes mellitus with other diabetic kidney complication (3) Hypertension Onset Date: 06/19/17 Current Visit: Yes Status: Chronic Qualifiers: Hypertension type: essential hypertension Qualified Code(s): I10 - Essential (primary) hypertension (4) Hyperlipidemia Onset Date: 06/19/17 Current Visit: Yes Status: Chronic Qualifiers: Hyperlipidemia type: unspecified Qualified Code(s): E78.5 - Hyperlipidemia , unspecified (5) Depression Onset Date: 06/19/17 Current Visit: Yes Status: Chronic Qualifiers: Depression Type: unspecified Qualified Code(s): F32.9 - Major depressive disorder, single episode, unspecified (6) Chronic back pain Onset Date: 06/19/17 Current Visit: Yes Status: Chronic Qualifiers: Back pain location: low back pain Back pain laterality: bilateral Sciatica presence: unspecified whether sciatica present Qualified Code(s): M54.5 - Low back pain; G89.29 - Other chronic pain; G89.29 - Other chronic pain (7) Renal calculi Onset Date: 06/19/17 Current Visit: Yes Status: Chronic (8) Low testosterone Onset Date: 06/19/17 Current Visit: Yes Status: Chronic (9) Anemia Current Visit: Yes Status: Acute Qualifiers: Anemia type: unspecified type Qualified Code(s): D64.9 - Anemia, unspecified Brief History of Present Illness: 66-year-old male presented emergency room with fatigue and abnormal lab. The patient reports that he has been having some sinus problems since last week. He went to see his PCP on Friday. He is found to have acute sinusitis. The patient was started on Cipro 500 mg twice daily. He had been taking over the counter cough and cold medication along with believed for pain. The patient has significant past medical history of diabetes, hypertension, hyperlipidemia, chronic pain, depression, low testosterone and history of kidney stones. The patient is taking metformin and losartan/ hydrochlorothiazide. On Friday he also had some lab drawn. Today he received phone call from his PCP alerting him that his lab was abnormal. He was told to go to the emergency room for further evaluation. He was told that his kidney function was not within normal range. The patient had reported increasing fatigue, decreased appetite. He reports no significant fever, chills, chest pain, shortness of breath, nausea or vomiting. He has noted some mild back pain. In the ER the patient was evaluated. Patient was found to be in acute renal failure with the BUN of 57, creatinine 5.4 with a GFR of 11. Previous lab in 2014 showed a normal renal function. White count within normal range. Sodium 134, potassium 3.8. Glucose 108. CT of the abdomen showed nephrolithiasis non obstructing. Otherwise unremarkable. Due to the nature the findings the patient was admitted for further evaluation. I was asked to admit the patient. When I saw the patient ER, he did not appear in any distress. Patient reports no history of renal disease. He has been taking his medication for diabetes, hypertension, hyperlipidemia for quite some time. No recent new medications have been started except Cipro. He reports using ibuprofen from time to time. Hospital Course: The patient did well during the course of the stay. Patient presented with acute renal failure likely from medication. He had been taking multiple medications that could interfere with his renal function. This included losartan/hydrochlorothiazide, nonsteroidal anti-inflammatories, metformin and recent antibiotic-Cipro. He was given IV fluids. Renal function slowly improved. Patient evaluated by nephrology. Adjustments in medications were done. At discharge creatinine was 2.34 with a GFR 28. At discharge losartan/ hydrochlorothiazide, nonsteroidal anti-inflammatories like ibuprofen, and diabetic medication-metformin has been discontinued. Recommendation is to recheck lab-BMP in 1 week. Recommendation is to follow up with nephrology in 1 week to follow up this hospitalization. Patient has diabetes. Hemoglobin A1c 6.4. This was well controlled during his stay. Metformin has been discontinued due to acute renal failure. Patient will be given glipizide 5 mg daily to be used if blood sugars are consistently above 200. He is to monitor his blood sugars. If he takes this medication, He will need to take it with food. Recommendation is to maintain blood sugars less 140 fasting and less than 200 after meals. Further adjustment in medication can be done by his PCP. Patient has hypertension. Medications have been adjusted due to his acute renal failure. He will no longer take losartan/hydrochlorothiazide. Patient will continue with Norvasc 10 mg daily. New medication-hydralazine 100 mg 1 pill 3 times a day will be continued. Recommendation is to maintain blood pressures less than 150/80. Further adjustment can be done by his PCP. Patient with history of depression. He will continue with his medication. Patient with history of chronic pain. He will continue with his medication. Patient with history of hyperlipidemia. He will continue with his medication. Vital Signs/Physical Exam: Temp Pulse Resp BP Pulse Ox 98.5 F 63 16 164/72 H 95 06/21/17 12:00 06/21/17 12:00 06/21/17 12:00 06/21/17 12:00 06/21/17 12:00 General: Alert, In no apparent distress, Oriented x3, Cooperative HEENT: Atraumatic, Normocephalic, PERRLA, Mucous membr. moist/pink Neck: Supple, No Thyromegaly Respiratory: Clear to auscultation bilaterally, Normal air movement Cardiovascular: Normal pulses, Regular rate/rhythm Gastrointestinal: Normal bowel sounds, Soft and benign, Non-distended, No tenderness, No masses, No rebound, No guarding Musculoskeletal: No erythema, No tenderness, No warmth Integumentary: No tenderness/swelling, No erythema, No warmth, No cyanosis Neurological: Normal speech, Normal strength at 5/5 x4 extr, Normal tone, Normal affect Laboratory Data at Discharge: WBC 7.8 K/uL (4.3-10.9) D 06/21/17 04:58 Hgb 11.9 g/dL (13.6-17.9) L 06/21/17 04:58 Hct 35.3 % (39.6-49.0) L 06/21/17 04:58 Plt Count 431 K/uL (152-406) H 06/21/17 04:58 Sodium 141 mEq/L (135-145) 06/21/17 04:58 Potassium 3.7 mEq/L (3.6-5.0) 06/21/17 04:58 BUN 34 mg/dL (6-20) H 06/21/17 04:58 Creatinine 2.34 mg/dL (0.61-1.24) H 06/21/17 04:58 Glucose 113 mg/dL (65-120) 06/21/17 04:58 Phosphorus 3.6 mg/dL (2.5-4.3) 06/21/17 04:58 Magnesium 1.9 mg/dL (1.8-2.5) 06/21/17 04:58 Total Bilirubin 0.7 mg/dL (0.3-1.2) 06/18/17 15:30 AST 19 IU/L (10-42) 06/18/17 15:30 ALT 26 IU/L (10-60) 06/18/17 15:30 Alkaline Phosphatase 62 IU/L (42-121) 06/18/17 15:30 Triglycerides 175 mg/dL (35-160) H 06/19/17 04:31 Cholesterol 107 mg/dL (<200) 06/19/17 04:31 HDL Cholesterol 19 mg/dL (27-67) L 06/19/17 04:31 Cholesterol/HDL Ratio 5.63 06/19/17 04:31 Amylase 53 U/L (28-100) 06/18/17 15:30 Lipase 22 U/L (22-51) 06/18/17 15:30 Home Medications: Amlodipine Besylate [Norvasc] 10 mg PO DAILY 04/29/14 Atorvastatin Calcium [Lipitor*] 10 mg PO BEDTIME 04/29/14 Lorazepam [Ativan] 1 mg PO BID 04/29/14 Nefazodone HCl 200 mg PO BID 04/29/14 Valacyclovir [Valtrex*] 500 mg PO DAILY PRN 04/29/14 Vardenafil HCl [Levitra] 20 mg PO DAILYPRN PRN 04/29/14 Aspirin [Aspirin EC 81 MG] 81 mg PO DAILY 08/18/14 Cholecalciferol (Vitamin D3) [Vitamin D3] 2,000 unit PO BID 08/18/14 [place]-3 Fatty Acids/Fish Oil [Fish Oil 1,000 mg Softgel] 2 each PO BID 08/18/14 Testosterone Enanthate 200 mg IM ONCE 08/18/14 L.acidoph,Paracasei, B.lactis [Probiotic] 1 each PO DAILY 06/18/17 Multivit-Min/FA/Lycopen/Lutein [Centrum Silver Men Tablet] 1 each PO DAILY 06/18 Glipizide [Glucotrol] 5 mg PO DAILY #30 tablet 06/21/17 Hydralazine HCl [Apresoline] 100 mg PO TID #90 tablet 06/21/17 New Medications: Glipizide [Glucotrol] 5 mg PO DAILY #30 tablet Hydralazine HCl [Apresoline] 100 mg PO TID #90 tablet Patient Discharge Instructions: 1. Follow up with PCP in 1 week to address this hospitalization. 2. Patient presented with acute renal failure. This is likely from medication. Multiple medications have been discontinued including losartan/hydrochlorothiazide, nonsteroidal anti-inflammatories, and metformin. Patient seen and evaluated by nephrology. At discharge renal function has significantly improved. Recommendation is to recheck lab-BMP in 1 week to monitor his progress. He is to increase his fluid intake. Recommendation is for the patient to follow up with nephrology in 1-2 weeks to follow up this hospitalization and continue his care. 3. Patient has diabetes. Hemoglobin A1c 6.4. Metformin has been discontinued due to acute renal failure. Patient will be given glipizide 5 mg daily to be used if blood sugars are consistently above 200. He is to monitor his blood sugars. If he takes this medication, He will need to take it with food. Recommendation is to maintain blood sugars less 140 fasting and less than 200 after meals. Further adjustment in medication can be done by his PCP. 4. Patient has hypertension. Medications have been adjusted. He will no longer take losartan/hydrochlorothiazide. Patient will continue with Norvasc 10 mg daily. New medication-hydralazine 100 mg 1 pill 3 times a day will be continued. Recommendation is to maintain blood pressures less than 150/80. Further adjustment can be done by his PCP. 5. Patient with history of depression. He will continue with his medication. 6. Patient with history of chronic pain. He will continue with his medication. 7. Patient with history of hyperlipidemia. He will continue with his medication. Diet: ADA Activity: Ad dalila Time spent managing pt's care (in minutes): 55
--- NOTE | 2017-06-21 16:00 | PN ---
Date of Progress Note: 06/21/2017 Subjective: The patient is doing well. No nausea. No vomiting. Objective: Vital Signs: Blood pressure 164/72, pulse of 63, afebrile. Chest: Clear to auscultation. Heart: S1, S2. Regular. Abdomen: Soft nontender. Extremities: No edema. Laboratory Data: H and H 11.9/35.3, sodium 141, potassium 3.7, bicarb 23, BUN 34, creatinine 2.3. G FR up to 28. Calcium 9. Phosphor 3.6, magnesium 1.9. Albumin 3.1. Medications: Current medications the patient on include; 1.Hydralazine 75 b.i.d. 2.Norvasc 10. 3.Atorvastatin. 4.Tylenol. 5.Lorazepam. 6.Flucytosine. 7.Tramadol. Assessment And Plan: 1.Acute kidney injury, normal-sized kidney, secondary to nonsteroidal/ARB with diuresis on the recov avery phase, normal volume. I am going to discontinue IV fluid. The patient is going to be cleared fo r discharge planning. 2.Hypertension, uncontrolled. We will increase the hydralazine to 3 times a day. We will keep hold ing on any SHILPI inhibitor or ARB on diuresis. We will monitor. 3.Hypokalemia, status post supplement. The patient is cleared from the renal standpoint for discharge planning to follow up in the office in 2-3 weeks with chemistry. MARGIE Voice ID: [id number] Report ID: [id number]
[2017-06-22 05:05] LABS: HBsAG Nonreactive (Nonreactive); Hepatitis A IgM Antibody Nonreactive
[2017-06-22 17:11] LABS: HIV 1/2 Antibody Diff Not indicated.; HIV AG/AB 4TH GEN Non-reactive (Non-reactive)
[2017-06-23 19:23] LABS: C-ANCA Anti-Proteinase 3 <1.0 AI (<1.0); P-ANCA Anti-Myeloperoxidase Ab <1.0 AI (<1.0)
== END 2017-06-21 16:03 | disposition home or self-care (01) | DRG 684 ==
LOC: ER 14:29 → ERHOLD 16:30 → 2ND 19:48
PROVIDERS: ADMIT Family Medicine; ATTEND Family Medicine
DX: N17.9 Acute kidney failure, unspecified (principal); E87.6 Hypokalemia; D64.9 Anemia, unspecified; N20.0 Calculus of kidney; E11.9 Type 2 diabetes mellitus without complications; I10 Essential (primary) hypertension; E78.5 Hyperlipidemia, unspecified; F32.89 Other specified depressive episodes; M19.90 Unspecified osteoarthritis, unspecified site; F17.200 Nicotine dependence, unspecified, uncomplicated
CPT/HCPCS: 36415; 71046; 74176; 76377; 76770; 80048; 80053; 80061; 80069; 80074; 80076; 81003; 81015; 82150; 82570; 82962; 83036; 83520; 83690; 83735; 83970; 84156; 84439; 84443; 85025; 86021; 86038; 86160; 86225; 87086; 87088; 87389; 93306; 94640; 96360; 99285; J0360; J1650; J7030; J7606

== ENCOUNTER 2020-07-10 10:23 | Day surgery (SDC) | payer OTHER ==
[2020-06-27 12:34] LABS: Absolute Lymphocytes (CBC) 1.9 K/uL (0.7-4.9); Basophils % 0.3 % (0-1.3); Hematocrit 51.2 % (39.6-49.0); Lymphocytes % 28.7 % (15.3-44.8); MPV 8.5 fL (7.6-11.3); RBC Red Blood Cell Count 5.28 M/uL (4.33-5.43)
--- NOTE | 2020-06-27 12:53 | EKG ---
Test Date: 2020-06-27 Test Time: 11:09:18 Jack Frame Tender: BEBO MEASUREMENT RESULTS: Intervals: Rate: 60 AL: 180 QRSD: 116 QT: 414 QTc: 414 [place]: P: 51 AL: 180 QRS: -40 T: -3 INTERPRETIVE STATEMENTS: Normal sinus rhythm Left axis deviation Nonspecific T wave abnormality Abnormal ECG Compared to ECG 12/03/2018 13:11:53 Left-axis deviation now present T-wave abnormality now present Intraventricular conduction delay no longer present Electronically Signed On 06-27-20 12:52:28 CDT by Dionicio Moffett
[2020-06-27 12:57] LABS: Potassium 3.7 mmol/L (3.5-5.1)
[2020-06-27 13:04] LABS: Protime INR 0.97
[~2020-07-10 10:23] MED LIST: HEPARIN 500 UNIT/5 ML SYR IV ONE; HEPARIN 5000 UNIT/ML 1 ML VIAL ONE; NA CHLORIDE 0.9% 100 ML IV ONE; ONDANSETRON 4 MG/2 ML VIAL ONE; dexAMETHasone 10 MG/ML VIAL ONE
[2020-07-10] MEDS ORDERED: NA CHLORIDE 0.9% 500 ML ONE (10:47)
[2020-07-10] MEDS ORDERED: HEPA 1000U/500MLS 2,000 UNIT/1,000 ML BAG IV ONE (12:22)
[2020-07-10] MEDS ORDERED: LIDOCAINE 1% MPF 30 ML VIAL ONE (12:22)
[2020-07-10] MEDS ORDERED: LIDOCAINE 1% 20 ML MDV ONE (12:54)
[2020-07-10] MEDS ORDERED: MIDAZOLAM HCL 2 MG/2 ML INJ ONE (12:55)
[2020-07-10] MEDS ORDERED: HEPARIN 5000 UNIT/ML 1 ML VIAL ONE (12:55)
[2020-07-10] MEDS ORDERED: HEPARIN 10,000 UNIT/10 ML VIAL IV ONE (12:56)
[2020-07-10] MEDS ORDERED: NITROGLYCERIN 100 MCG/ML SYR (for cath lab use only) IV ONE (12:56)
[2020-07-10] MEDS ORDERED: ATROPINE SULF 1 MG/10 ML SYR IV ONE (12:56)
[2020-07-10] MEDS ORDERED: FENTANYL CITR 100 MCG/2 ML ONE (12:56)
[2020-07-10] MEDS ORDERED: VERAPAMIL HCL 10 MG/4 ML VIAL IV ONE (12:56)
[2020-07-10] MEDS ORDERED: HYDRALAZINE HCL 20 MG/ML VIAL ONE ×2 (13:20→14:15)
[2020-07-10] MEDS ORDERED: NITROGLYCERIN 0.4 MG/TAB SL ONE (13:57)
[2020-07-10] MEDS ORDERED: ACETAMINOPHEN 325 MG TABLET ONE (14:23)
--- NOTE | 2020-07-10 14:47 | OP ---
Date of Procedure: 07/10/2020 Surgeon: CHRISTIANA TORRES Procedure Performed: Selective coronary angiogram. Indication: Unstable angina with abnormal stress test. Access: Right radial artery 6-Cymraes closed with TR band. Complications: None. Bleeding: Less than 10 mL. Description Of Procedure: After risks, benefits, and alternatives were explained, the patient agreed to the procedure and signed informed consent. The patient was brought in the cardiac catheterizatio n laboratory, prepped and draped in usual sterile fashion. Then, we accessed the right radial artery using pediatric micropuncture kit and a 6-Cymraes slender sheath, and took a 5-Cymraes Thornton catheter 4.0 into the aortic root, engaged the left main and right coronary artery, took standard views and th en removed the catheter and sheath, and placed TR band with good hemostasis. Findings: 1.Left main is large, normal. 2.LAD, moderate-size vessel with mid NURSING ASSISTANTS TEACHER and collaterals forming from the left side likely from the circ or the diagonal. Diagonal 1 branch is patent with no significant disease. 3.Left circumflex, moderate to large size with no significant disease. 4.RCA, has an area of severe tortuosity in the proximal section with 70% to 80% stenosis behind it a nd then at the mid section, there is a focal 95% stenosis with SHARIF-3 flow. Impression: NURSING ASSISTANTS TEACHER of mid LAD and severe proximal mid RCA disease with tortuosity. Recommendations: Evaluation for coronary artery bypass surgery. We will transfer to [place] for cyrus t if declined for surgery and attempt for NURSING ASSISTANTS TEACHER PCI will be done for the LAD and PCI of the right coron margareth artery. /DORITAL Voice ID: [id number] Report ID: [id number]
[2020-07-10 14:50] VITALS: TEMP 97.8
[2020-07-10] MEDS ORDERED: ALPRAZOLAM 0.5 MG TABLET PO ONE (15:00)
[2020-07-10 15:12] VITALS: BP 150/60; O2SAT 95
--- NOTE | 2020-07-11 16:37 | EKG ---
Test Date: 2020-07-10 Test Time: 13:42:58 Counter Help: KYLE MEASUREMENT RESULTS: Intervals: Rate: 77 DE: 188 QRSD: 118 QT: 402 QTc: 454 [place]: P: 62 DE: 188 QRS: -33 T: 41 INTERPRETIVE STATEMENTS: Sinus rhythm with premature atrial complexes Left axis deviation Nonspecific intraventricular conduction delay Nonspecific ST and T wave abnormality Abnormal ECG Compared to ECG 06/27/2020 11:09:18 Atrial premature complex(es) now present Intraventricular conduction delay now present ST (T wave) deviation now present T-wave abnormality no longer present Electronically Signed On 07-11-20 16:33:18 CDT by Dionicio Moffett
== END 2020-07-10 16:33 | disposition short-term general hospital (02) ==
LOC: CCL 10:23
PROVIDERS: ATTEND Internal Medicine
DX: I25.110 Atherosclerotic heart disease of native coronary artery with unstable angina pectoris (principal); I25.82 Chronic total occlusion of coronary artery; I77.1 Stricture of artery; I10 Essential (primary) hypertension; E78.5 Hyperlipidemia, unspecified; F17.210 Nicotine dependence, cigarettes, uncomplicated; Z20.822 Contact with and (suspected) exposure to COVID-19; Z82.49 Family history of ischemic heart disease and other diseases of the circulatory system
CPT/HCPCS: 93005 ×2; 85025; 80048; 36415; 85610; 85730; 93454; U0003; C1893; J0360 ×2; J1644 ×2; J2250; J3010; J1100; J1642; J7040; J2405

== ENCOUNTER 2022-05-31 10:30 | Day surgery (SDC) | payer OTHER ==
[2022-05-30 11:37] LABS: Absolute Lymphocytes (CBC) 1.7 K/uL (0.7-4.9); Hematocrit 43.4 % (39.6-49.0); Lymphocytes % 21.3 % (15.3-44.8); MCV 93.5 fL (80-100); MPV 7.8 fL (7.6-11.3); RBC Red Blood Cell Count 4.64 M/uL (4.33-5.43)
[2022-05-30 11:40] LABS: Protime INR 0.85
[2022-05-30 11:46] LABS: Potassium 3.6 mmol/L (3.5-5.1)
[2022-05-31] MEDS ORDERED: LIDOCAINE 1% 20 ML MDV ONE (10:38)
[2022-05-31] MEDS ORDERED: HEPA 1000U/500MLS 2,000 UNIT/1,000 ML BAG IV ONE (10:38)
[2022-05-31] MEDS ORDERED: FENTANYL CITR 100 MCG/2 ML ONE (10:41)
[2022-05-31] MEDS ORDERED: VERAPAMIL HCL 10 MG/4 ML VIAL IV ONE (10:42)
[2022-05-31] MEDS ORDERED: CLOPIDOGREL 75 MG TABLET ONE (10:42)
[2022-05-31] MEDS ORDERED: HEPARIN 5000 UNIT/ML 1 ML VIAL ONE (10:42)
[2022-05-31] MEDS ORDERED: HEPARIN 10,000 UNIT/10 ML VIAL IV ONE (10:42)
[2022-05-31] MEDS ORDERED: MIDAZOLAM HCL 2 MG/2 ML INJ ONE ×2 (10:42→13:26)
[2022-05-31] MEDS ORDERED: ASPIRIN 325 MG TAB ONE (10:42)
[2022-05-31] MEDS ORDERED: TICAGRELOR 90 MG TABLET PO ONE (10:43)
[2022-05-31] MEDS ORDERED: ATROPINE SULF 1 MG/10 ML SYR IV ONE (10:43)
[2022-05-31] MEDS ORDERED: NA CHLORIDE 0.9% 500 ML ONE (11:13)
[2022-05-31 16:17] VITALS: BP 142/66; O2SAT 100
--- NOTE | 2022-06-01 02:26 | OP ---
Date of Procedure: 05/31/2022 Surgeon: CHRISTIANA TORRES Procedures Performed: 1.Selective coronary angiogram with bypass graft study. 2.Left heart catheterization. Indication: Abnormal stress test. Access: Right femoral artery 6-Czech closed with 6-Czech Angio-Seal. Complications: None. Estimated Blood Loss: Bleeding less than 10 mL. Anesthesia: Total sedation time was 30 minutes, used fentanyl and Versed. Description Of Procedure: After risks, benefits, and alternatives were explained, the patient agreed to the procedure and signed informed consent. The patient was brought into the cardiac catheterizat ion laboratory and prepped and draped in usual sterile fashion. Then I accessed right femoral artery using micropuncture kit, fluoroscopy, and ultrasound guidance and placed a 6-Czech [place] sheath, took 6-Czech JL4 catheter in the aortic root, engaged left main and took standard views and then ex changed over the J-wire into a 6-Czech JR4 catheter, engaged the RCA, took standard views, engaged t he SVG to RCA and took standard views and then engaged the ASH to LAD, took standard views, then rem stanislav the catheter and removed the sheath. 6-Czech Angio-Seal was used for closure with hemostasis. Findings: 1.Left main with proximal 20% to 30% stenosis. It is a very large vessel. 2.LAD: Proximal appears to be clean. After the diagonal takeoff, it has 100% WIRELESS TECHNICIAN. 3.Left circumflex is very large and codominant with proximal and mid 30% stenosis and 2 consecutive lesions. 4.RCA is large and ectatic with the mid WIRELESS TECHNICIAN. Graft Study: 1.Patent ASH to distal LAD. 2.Patent SVG to PDA. 3.Borderline elevated LVEDP at 30 mmHg. Conclusion: 1.Severe left anterior descending and right coronary artery stenosis, totally occluded with patent s aphenous vein graft to right coronary artery and patent left internal mammary artery to left anterior descending. 2.Elevated left ventricular end-diastolic pressure slightly. Plan: Continue medical therapy and diuretics. Low-salt diet. SR/MODL Voice ID: [id number] Report ID: [id number]
== END 2022-05-31 15:45 | disposition home or self-care (01) ==
LOC: CCL 10:30
PROVIDERS: ATTEND Internal Medicine
DX: I25.110 Atherosclerotic heart disease of native coronary artery with unstable angina pectoris (principal); I25.82 Chronic total occlusion of coronary artery; I10 Essential (primary) hypertension; E78.5 Hyperlipidemia, unspecified; E11.9 Type 2 diabetes mellitus without complications; Z95.1 Presence of aortocoronary bypass graft; Z87.891 Personal history of nicotine dependence; Z79.82 Long term (current) use of aspirin; Z79.899 Other long term (current) drug therapy; Z82.49 Family history of ischemic heart disease and other diseases of the circulatory system
CPT/HCPCS: 93005; 85025; 80048; 36415; 85610; 82947; 85730; 93459; 76937; C1893; Q9966; C1760; G0269; J2001; J3010; J2250 ×2; J7040; J1644; J0461

== ENCOUNTER 2024-07-10 21:26 | Emergency (ER) | payer OTHER ==
--- NOTE | 2024-07-10 22:38 | RAD REPORT ---
EXAMINATION: CT HEAD WITHOUT CONTRAST CT CERVICAL SPINE WITHOUT CONTRAST CLINICAL INDICATION: Head and neck injury status post fall. Head and neck pain TECHNIQUE: Axial CT images from the skull base to the vertex without intravenous contrast. Axial CT i mages through the cervical spine were obtained without intravenous contrast. Sagittal and coronal reformatted images were created from the data set. Coronal and sagittal reformatted images were creat ed from the data set. One or more of the following dose reduction techniques were used: Automated exposure control, adjustment of the mA and/or kV according to patient size, and/or iterative reconstr uction. Unless otherwise specified, incidental findings do not require dedicated imaging follow-up. [id number]. Comparison: 2016 x-ray cervical spine FINDINGS: An intracranial bleed is not seen. Ventricles are normal in caliber. No significant hypodensity within the brain No extra-axial fluid collection. No fluid within the sinuses/mastoids No fracture or dislocation is seen involving the cervical spine. Spondylosis cervical spine. Mild chronic anterior subluxation C4 on C5.. Mild chronic anterior sublux ation C7 on T1. IMPRESSION: No acute intracranial abnormality noted A cervical fracture is not seen. If the patient continues to have symptoms to suggest acute FACILITY MANAGER/spinal pathology then MRI would be rec ommended
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
[2024-07-10 23:08] VITALS: TEMP 98.2
[2024-07-10 23:09] VITALS: BP 165/71; O2SAT 98
== END 2024-07-10 22:52 | disposition home or self-care (01) ==
LOC: ER 21:26
DX: S00.03XA Contusion of scalp, initial encounter (principal); W01.0XXA Fall on same level from slipping, tripping and stumbling without subsequent striking against object, initial encounter
CPT/HCPCS: 70450; 72125; 99283